=== PATIENT | male | born 1965 | race Caucasian/White ===

== ENCOUNTER 2018-02-07 08:10 | Outpatient (CLI) | payer OTHER ==
--- NOTE | 2018-02-07 09:59 | ULT ---
SOFT TISSUE ULTRASOUND OF THE LEFT INGUINAL REGION: INDICATION: Concern for a left inguinal hernia. TECHNIQUE: [place] scale ultrasound images were obtained of the region of interest in the left inguinal region and left lower quadrant of the abdomen. FINDINGS: No visible hernia is evident. The visualized abdominal wall and subcutaneous tissues appear normal. IMPRESSION: No left inguinal hernia demonstrated. POS: [facility]
== END 2018-02-07 08:11 | disposition home or self-care (01) ==
LOC: BICULT 08:10
PROVIDERS: ATTEND Nurse Practitioner Family
DX: R10.32 Left lower quadrant pain (principal)
CPT/HCPCS: 76999

== ENCOUNTER 2021-12-02 19:00 | Outpatient (CLI) | payer BC | END 2021-12-02 19:01 | disposition home or self-care (01) | LOC: SLEEPLAB 19:00 | PROVIDERS: ATTEND Internal Medicine Critical Care Medicine | DX: G47.33 Obstructive sleep apnea (adult) (pediatric) (principal); R06.83 Snoring; F41.9 Anxiety disorder, unspecified; I10 Essential (primary) hypertension | CPT/HCPCS: 95800 ==